=== PATIENT | male | born 1945 | race Asian ===

== ENCOUNTER 2019-06-06 14:33 | Inpatient (IN) | payer MEDICARE ==
[~2019-06-06] VITALS: Ht 160 cm; Wt 73.3 kg
[2019-06-06] MEDS ORDERED: OMEPRAZOLE40 M1 PO (14:52)
[2019-06-06] MEDS ORDERED: SYMBICORT1 AE3 INH (14:53)
[2019-06-06] MEDS ORDERED: SIMVASTATIN40 M1 PO (14:53)
[2019-06-06] MEDS ORDERED: LASIX20 MG PO (15:15)
[2019-06-06 15:30] LABS: CALCIUM 8.5 mg/dL (8.5-10.1); CARBON DIOXIDE 26.3 mmol/L (21-32); CHLORIDE SERUM 102 mmol/L (98-107); CREATININE SERUM 0.9 mg/dL (0.7-1.3); GLUCOSE SERUM 116 mg/dL (74-106); POTASSIUM SERUM 4.1 mmol/L (3.5-5.1); SODIUM SERUM 138 mmol/L (136-145)
[2019-06-06 15:44] LABS: BASOPHIL % 0.2 % (0-2); PLATELET COUNT 283 x10^3mcL (130-400)
[2019-06-06 19:10] LABS: MAGNESIUM 1.7 mg/dL (1.8-2.4)
[2019-06-06 19:11] LABS: CHOLESTEROL/HDL RATIO 4.2
[2019-06-06 19:30] LABS: microscopic required? NO
[2019-06-06 20:02] LABS: UA SPECIFIC GRAVITY <=1.005 (1.005-1.035); urine erythrocyte NEGATIVE (NEGATIVE)
[2019-06-06 20:07] VITALS: BP 95/68
[2019-06-06 20:11] LABS: AMPHETAMINE QUAL UR NONE DETECTED (See below)
[2019-06-06 20:12] VITALS: BP 95/68
[2019-06-06 20:20] VITALS: Ht 160 cm; Wt 73.3 kg
[2019-06-07 05:52] VITALS: BP 96/60
[2019-06-07 06:24] LABS: BASOPHIL % 0.3 % (0-2); PLATELET COUNT 282 x10^3mcL (130-400)
[2019-06-07 06:29] LABS: RED CELL DISTRIBUTION WIDTH 14.9 % (11.5-14.5)
[2019-06-07 08:15] LABS: CARBON DIOXIDE 25.1 mmol/L (21-32); CHLORIDE SERUM 101 mmol/L (98-107); CREATININE SERUM 0.9 mg/dL (0.7-1.3); GLUCOSE SERUM 123 mg/dL (74-106); POTASSIUM SERUM 3.8 mmol/L (3.5-5.1); SODIUM SERUM 137 mmol/L (136-145)
[2019-06-07 08:33] VITALS: BP 97/68
[2019-06-07 13:01] VITALS: BP 93/65
[2019-06-07 16:40] VITALS: BP 96/63
[2019-06-07 20:29] VITALS: BP 103/67
[2019-06-08 06:16] VITALS: BP 94/62
[2019-06-08 06:24] LABS: BASOPHIL % 0.3 % (0-2); PLATELET COUNT 306 x10^3mcL (130-400)
[2019-06-08 07:21] LABS: RED CELL DISTRIBUTION WIDTH 15.1 % (11.5-14.5)
[2019-06-08] MEDS ORDERED: SYNTHROID0.112 MG (08:25)
[2019-06-08] MEDS ORDERED: FLO4 PO (08:27)
[2019-06-08] MEDS ORDERED: SYNTHROID0.112 MG PO (08:29)
[2019-06-08 08:30] LABS: CALCIUM 8.8 mg/dL (8.5-10.1); CARBON DIOXIDE 29.7 mmol/L (21-32); CHLORIDE SERUM 105 mmol/L (98-107); CREATININE SERUM 0.9 mg/dL (0.7-1.3); GLUCOSE SERUM 119 mg/dL (74-106); PHOSPHOROUS 3.7 mg/dL (2.5-4.9); POTASSIUM SERUM 3.8 mmol/L (3.5-5.1); SODIUM SERUM 144 mmol/L (136-145)
[2019-06-08 09:17] VITALS: BP 107/69
[2019-06-08 12:14] VITALS: BP 107/70
[2019-06-08 16:01] VITALS: BP 101/67
[2019-06-08 16:02] VITALS: BP 117/83
[2019-06-08 20:53] VITALS: BP 93/57
[2019-06-09 05:15] VITALS: BP 96/61
[2019-06-09 06:45] LABS: BASOPHIL % 0.3 % (0-2); PLATELET COUNT 307 x10^3mcL (130-400)
[2019-06-09 06:53] LABS: RED CELL DISTRIBUTION WIDTH 14.8 % (11.5-14.5)
[2019-06-09 07:05] LABS: CARBON DIOXIDE 26.1 mmol/L (21-32); CHLORIDE SERUM 102 mmol/L (98-107); CREATININE SERUM 0.8 mg/dL (0.7-1.3); GLUCOSE SERUM 110 mg/dL (74-106); MAGNESIUM 1.6 mg/dL (1.8-2.4); POTASSIUM SERUM 3.4 mmol/L (3.5-5.1); SODIUM SERUM 138 mmol/L (136-145)
[2019-06-09 08:35] VITALS: BP 92/57
[2019-06-09 09:38] VITALS: BP 92/57
[2019-06-09 12:15] VITALS: BP 98/60
[2019-06-09 16:57] VITALS: BP 103/64
[2019-06-09 20:45] VITALS: BP 94/56
[2019-06-10 05:16] VITALS: BP 104/63
[2019-06-10 06:34] LABS: BASOPHIL % 0.1 % (0-2); PLATELET COUNT 330 x10^3mcL (130-400)
[2019-06-10 06:51] LABS: RED CELL DISTRIBUTION WIDTH 15.2 % (11.5-14.5)
[2019-06-10 07:23] LABS: CALCIUM 8.6 mg/dL (8.5-10.1); CARBON DIOXIDE 26.1 mmol/L (21-32); CHLORIDE SERUM 102 mmol/L (98-107); CREATININE SERUM 0.8 mg/dL (0.7-1.3); GLUCOSE SERUM 140 mg/dL (74-106); POTASSIUM SERUM 4.5 mmol/L (3.5-5.1); SODIUM SERUM 138 mmol/L (136-145)
[2019-06-10 08:35] VITALS: BP 99/58
[2019-06-10 12:43] VITALS: BP 103/67
[2019-06-10 17:16] VITALS: BP 102/63
[2019-06-10 19:55] VITALS: BP 103/58
[2019-06-11 05:47] VITALS: BP 104/69
[2019-06-11 06:42] LABS: BASOPHIL % 0.2 % (0-2)
[2019-06-11 06:45] LABS: CALCIUM 8.4 mg/dL (8.5-10.1); CARBON DIOXIDE 25.8 mmol/L (21-32); CHLORIDE SERUM 101 mmol/L (98-107); GLUCOSE SERUM 175 mg/dL (74-106); POTASSIUM SERUM 4.3 mmol/L (3.5-5.1); SODIUM SERUM 138 mmol/L (136-145)
[2019-06-11 07:21] LABS: PLATELET COUNT 405 x10^3mcL (130-400); RED CELL DISTRIBUTION WIDTH 15.4 % (11.5-14.5)
[2019-06-11 08:54] VITALS: BP 102/61
[2019-06-11 11:29] VITALS: BP 106/67
[2019-06-11 16:29] VITALS: BP 104/61
[2019-06-11 19:55] VITALS: BP 96/63
[2019-06-12 05:57] VITALS: BP 92/57
[2019-06-12 06:21] LABS: BASOPHIL % 0.2 % (0-2); PLATELET COUNT 397 x10^3mcL (130-400)
[2019-06-12 06:29] LABS: CALCIUM 8.9 mg/dL (8.5-10.1); CHLORIDE SERUM 102 mmol/L (98-107); CREATININE SERUM 0.9 mg/dL (0.7-1.3); GLUCOSE SERUM 126 mg/dL (74-106); POTASSIUM SERUM 4.9 mmol/L (3.5-5.1); SODIUM SERUM 140 mmol/L (136-145)
[2019-06-12 07:22] LABS: RED CELL DISTRIBUTION WIDTH 15.5 % (11.5-14.5)
[2019-06-12 09:15] VITALS: BP 99/63
[2019-06-12 12:45] VITALS: BP 99/63
[2019-06-12] MEDS ORDERED: LEVAQUIN750 MG PO (17:15)
[2019-06-12] MEDS ORDERED: PRE20 PO (17:17)
[2019-06-12] MEDS ORDERED: ALBUTEROL SULFAT3 ML NEB (17:19)
[2019-06-12 17:37] VITALS: BP 102/54
[2019-06-12 17:47] VITALS: BP 102/54
== END 2019-06-12 20:24 | disposition home health service (06) | DRG 196 ==
LOC: ED 14:33 → DU 18:39 → MU 06-11 16:53
PROVIDERS: Internal Medicine; Student in an Organized Health Care Education/Training Program; ADMIT General Practice
DX: J84.10 Pulmonary fibrosis, unspecified (principal); I21.A1 Myocardial infarction type 2; J96.21 Acute and chronic respiratory failure with hypoxia; E89.0 Postprocedural hypothyroidism; E83.42 Hypomagnesemia; E78.5 Hyperlipidemia, unspecified; N40.0 Benign prostatic hyperplasia without lower urinary tract symptoms; Z99.81 Dependence on supplemental oxygen; Z68.28 Body mass index [BMI] 28.0-28.9, adult; Z87.891 Personal history of nicotine dependence; Z79.51 Long term (current) use of inhaled steroids
CPT/HCPCS: 36600; 82962; 83880; 94150; 97110-GP; 97116-GP; 97530-GP; C9113; G0378; J1644; J1956; J2270; J2920; J3475; J7030; J7512; J7620; Q0092; Q9967

== ENCOUNTER 2019-07-19 03:36 | Inpatient (IN) | payer MEDICARE ==
[~2019-07-19] VITALS: Ht 160 cm; Wt 67.8 kg
[~2019-07-19 03:36] MED LIST: ALBUTEROL SULFAT3 ML NEB; FLO4 PO; LASIX20 MG PO; LEVAQUIN750 MG PO; OMEPRAZOLE40 M1 PO; PRE20 PO; SIMVASTATIN40 M1 PO; SYMBICORT1 AE3 INH; SYNTHROID0.112 MG; SYNTHROID0.112 MG PO
[2019-07-19 03:41] VITALS: Ht 160 cm; Wt 67.8 kg
[2019-07-19 04:05] LABS: BASOPHIL % 0.3 % (0-2); PLATELET COUNT 329 x10^3mcL (130-400)
[2019-07-19 04:08] LABS: RED CELL DISTRIBUTION WIDTH 16.4 % (11.5-14.5)
[2019-07-19 04:15] LABS: CALCIUM 8.8 mg/dL (8.5-10.1); CARBON DIOXIDE 27.7 mmol/L (21-32); CHLORIDE SERUM 101 mmol/L (98-107); CREATININE SERUM 0.9 mg/dL (0.7-1.3); GLUCOSE SERUM 104 mg/dL (74-106); POTASSIUM SERUM 3.9 mmol/L (3.5-5.1); SODIUM SERUM 138 mmol/L (136-145)
[2019-07-19 04:20] LABS: ALBUMIN 3.5 g/dL (3.4-5.0); ALKALINE PHOSPHATASE 69 U/L (46-116); ALT/SGPT 21 U/L (16-63); AST/SGOT 10 U/L (15-37); BILIRUBIN TOTAL 0.36 mg/dL (0.20-1.00); TOTAL PROTEIN, SERUM 7.1 g/dL (6.4-8.2)
[2019-07-19 09:01] VITALS: BP 106/74
[2019-07-19 10:05] LABS: microscopic required? NO
[2019-07-19 10:35] LABS: urine erythrocyte NEGATIVE (NEGATIVE)
[2019-07-19 10:41] LABS: AMPHETAMINE QUAL UR NONE DETECTED (See below)
[2019-07-19 10:57] VITALS: BP 106/74
[2019-07-19 13:13] VITALS: BP 101/71
[2019-07-19 17:39] VITALS: BP 98/61
[2019-07-19 21:28] VITALS: BP 93/55
[2019-07-20 05:23] VITALS: BP 99/62
[2019-07-20 06:52] LABS: BASOPHIL % 0.2 % (0-2); PLATELET COUNT 311 x10^3mcL (130-400)
[2019-07-20 07:06] LABS: RED CELL DISTRIBUTION WIDTH 15.9 % (11.5-14.5)
[2019-07-20 07:22] LABS: CALCIUM 8.6 mg/dL (8.5-10.1); CARBON DIOXIDE 25.3 mmol/L (21-32); CHLORIDE SERUM 104 mmol/L (98-107); CREATININE SERUM 0.7 mg/dL (0.7-1.3); GLUCOSE SERUM 120 mg/dL (74-106); MAGNESIUM 2.3 mg/dL (1.8-2.4); PHOSPHOROUS 3.9 mg/dL (2.5-4.9); SODIUM SERUM 139 mmol/L (136-145)
[2019-07-20 08:50] VITALS: BP 105/58
[2019-07-20 12:24] VITALS: BP 92/56
[2019-07-20 18:09] VITALS: BP 91/53
[2019-07-20 21:53] VITALS: BP 95/60
[2019-07-21 04:28] VITALS: BP 101/65
[2019-07-21 06:31] LABS: BASOPHIL % 0.2 % (0-2); PLATELET COUNT 316 x10^3mcL (130-400)
[2019-07-21 06:52] LABS: RED CELL DISTRIBUTION WIDTH 16.2 % (11.5-14.5)
[2019-07-21 06:54] LABS: CALCIUM 8.5 mg/dL (8.5-10.1); CARBON DIOXIDE 25.1 mmol/L (21-32); CHLORIDE SERUM 104 mmol/L (98-107); CREATININE SERUM 0.9 mg/dL (0.7-1.3); GLUCOSE SERUM 153 mg/dL (74-106); MAGNESIUM 2.1 mg/dL (1.8-2.4); PHOSPHOROUS 3.5 mg/dL (2.5-4.9); POTASSIUM SERUM 3.9 mmol/L (3.5-5.1); SODIUM SERUM 141 mmol/L (136-145)
[2019-07-21 09:25] VITALS: BP 91/60
[2019-07-21 12:41] VITALS: BP 98/70
[2019-07-21 16:10] VITALS: BP 91/63
[2019-07-21 20:47] VITALS: BP 92/64
[2019-07-22 05:43] VITALS: BP 95/66
[2019-07-22 06:30] LABS: BASOPHIL % 0.1 % (0-2); PLATELET COUNT 327 x10^3mcL (130-400)
[2019-07-22 06:37] LABS: RED CELL DISTRIBUTION WIDTH 16.3 % (11.5-14.5)
[2019-07-22 06:55] LABS: CALCIUM 8.4 mg/dL (8.5-10.1); CARBON DIOXIDE 26.9 mmol/L (21-32); CHLORIDE SERUM 103 mmol/L (98-107); CREATININE SERUM 0.7 mg/dL (0.7-1.3); GLUCOSE SERUM 112 mg/dL (74-106); MAGNESIUM 2.3 mg/dL (1.8-2.4); PHOSPHOROUS 3.9 mg/dL (2.5-4.9); POTASSIUM SERUM 3.7 mmol/L (3.5-5.1); SODIUM SERUM 140 mmol/L (136-145)
[2019-07-22] MEDS ORDERED: ATIVAN0.5 M1 PO (08:37)
[2019-07-22] MEDS ORDERED: LEVAQUIN750 MG PO (09:02)
[2019-07-22] MEDS ORDERED: PRE20 PO (09:02)
[2019-07-22 09:14] VITALS: BP 97/65
[2019-07-22 10:37] VITALS: BP 97/65
[2019-07-22 12:52] VITALS: BP 101/69
== END 2019-07-22 16:35 | disposition home health service (06) | DRG 196 ==
LOC: ED 03:36 → DU 04:34
PROVIDERS: Emergency Medicine; ADMIT Internal Medicine
DX: J84.10 Pulmonary fibrosis, unspecified (principal); J96.21 Acute and chronic respiratory failure with hypoxia; J44.1 Chronic obstructive pulmonary disease with (acute) exacerbation; R55 Syncope and collapse; E86.0 Dehydration; I27.29 Other secondary pulmonary hypertension; E03.9 Hypothyroidism, unspecified; N40.0 Benign prostatic hyperplasia without lower urinary tract symptoms; Z99.81 Dependence on supplemental oxygen; Z87.891 Personal history of nicotine dependence; Z68.27 Body mass index [BMI] 27.0-27.9, adult
CPT/HCPCS: 36600; 90658; 90732; 94150; 97110-GP; 97116-GP; G0378; J1956; J2920; J2930; J7030; J7613; J7620; J7626; J7644; Q0092

== ENCOUNTER 2019-09-16 01:17 | Inpatient (IN) | payer MEDICARE ==
[2019-09-16] VITALS (20 sets, daily range): BP systolic 82–146; BP diastolic 55–94
[~2019-09-16] VITALS: Ht 167.6 cm; Wt 67.0 kg
[~2019-09-16 01:17] MED LIST changes: +ATIVAN0.5 M1 PO
[2019-09-16 02:13] LABS: CALCIUM 7.9 mg/dL (8.5-10.1); CARBON DIOXIDE 28.6 mmol/L (21-32); CHLORIDE SERUM 100 mmol/L (98-107); CREATININE SERUM 0.8 mg/dL (0.7-1.3); GLUCOSE SERUM 116 mg/dL (74-106); POTASSIUM SERUM 3.8 mmol/L (3.5-5.1); SODIUM SERUM 140 mmol/L (136-145)
[2019-09-16 02:17] LABS: ALKALINE PHOSPHATASE 90 U/L (46-116); ALT/SGPT 56 U/L (16-63); AST/SGOT 38 U/L (15-37); BILIRUBIN TOTAL 0.58 mg/dL (0.20-1.00); LIPASE 116 IU/L (73-393); TOTAL PROTEIN, SERUM 7.5 g/dL (6.4-8.2)
[2019-09-16 02:20] LABS: PLATELET COUNT 454 x10^3mcL (130-400); RED CELL DISTRIBUTION WIDTH 15.2 % (11.5-14.5)
[2019-09-16 02:22] LABS: ALBUMIN 3.1 g/dL (3.4-5.0)
[2019-09-16 02:24] LABS: T3 TOTAL 0.58 ng/mL
[2019-09-16 02:33] LABS: FREE T4 1.01 ng/dL (0.76-1.46); FREE THYROXINE INDEX 2.8 ug/dL (1.4-4.5); T4(THYROXINE) 7.9 ug/dL (4.7-13.3)
[2019-09-16 02:34] LABS: BAND NEUTROPHIL 4 % (0-10); METAMYELOCTE 1 % (0-2); MONOCYTE 4 % (0-7); SEGMENTED NEUTROPHILS 82 % (37-75)
[2019-09-16 02:38] LABS: PLATELET MORPHOLOGY PLATELETS NORMAL; rbc morphology (normal/abnorm) ABNORMAL (NORMAL)
[2019-09-16 04:08] LABS: UA SPECIFIC GRAVITY 1.015 (1.005-1.035); microscopic required? YES; urine erythrocyte 1+ (NEGATIVE)
[2019-09-16 04:13] LABS: CHOLESTEROL/HDL RATIO 3.2
[2019-09-16 04:16] LABS: AMPHETAMINE QUAL UR NONE DETECTED (See below)
[2019-09-16 08:00] LABS: PLATELET COUNT 283 x10^3mcL (130-400)
[2019-09-16 08:17] LABS: CALCIUM 6.7 mg/dL (8.5-10.1); CARBON DIOXIDE 25.6 mmol/L (21-32); CHLORIDE SERUM 104 mmol/L (98-107); CREATININE SERUM 0.8 mg/dL (0.7-1.3); GLUCOSE SERUM 155 mg/dL (74-106); MAGNESIUM 1.9 mg/dL (1.8-2.4); PHOSPHOROUS 3.2 mg/dL (2.5-4.9); POTASSIUM SERUM 3.9 mmol/L (3.5-5.1); SODIUM SERUM 137 mmol/L (136-145)
[2019-09-16 09:11] LABS: RED CELL DISTRIBUTION WIDTH 16.9 % (11.5-14.5)
[2019-09-16 11:35] LABS: BAND NEUTROPHIL 4 % (0-10); BASOPHIL 0 % (0-2); MONOCYTE 2 % (0-7); SEGMENTED NEUTROPHILS 94 % (37-75)
[2019-09-16 11:36] LABS: PLATELET MORPHOLOGY PLATELETS NORMAL; rbc morphology (normal/abnorm) ABNORMAL (NORMAL)
[2019-09-17] VITALS (18 sets, daily range): BP systolic 87–117; BP diastolic 54–70
[2019-09-17 05:34] LABS: PLATELET COUNT 281 x10^3mcL (130-400)
[2019-09-17 05:36] LABS: BASOPHIL % 0 % (0-2); RED CELL DISTRIBUTION WIDTH 16.8 % (11.5-14.5)
[2019-09-17 05:45] LABS: CALCIUM 6.8 mg/dL (8.5-10.1); CARBON DIOXIDE 27.8 mmol/L (21-32); CHLORIDE SERUM 107 mmol/L (98-107); CREATININE SERUM 0.6 mg/dL (0.7-1.3); GLUCOSE SERUM 179 mg/dL (74-106); MAGNESIUM 2.2 mg/dL (1.8-2.4); PHOSPHOROUS 2.8 mg/dL (2.5-4.9); POTASSIUM SERUM 3.6 mmol/L (3.5-5.1); SODIUM SERUM 143 mmol/L (136-145)
[2019-09-18] VITALS (17 sets, daily range): BP systolic 86–117; BP diastolic 57–79
[2019-09-18 05:06] LABS: PLATELET COUNT 295 x10^3mcL (130-400)
[2019-09-18 05:11] LABS: BASOPHIL % 0 % (0-2); RED CELL DISTRIBUTION WIDTH 17.2 % (11.5-14.5)
[2019-09-18 05:16] LABS: CALCIUM 6.9 mg/dL (8.5-10.1); CARBON DIOXIDE 31.7 mmol/L (21-32); CHLORIDE SERUM 109 mmol/L (98-107); CREATININE SERUM 0.5 mg/dL (0.7-1.3); GLUCOSE SERUM 163 mg/dL (74-106); MAGNESIUM 2.5 mg/dL (1.8-2.4); PHOSPHOROUS 2.6 mg/dL (2.5-4.9); POTASSIUM SERUM 3.8 mmol/L (3.5-5.1); SODIUM SERUM 144 mmol/L (136-145)
[2019-09-19] VITALS (18 sets, daily range): BP systolic 90–116; BP diastolic 58–79
[2019-09-19 05:16] LABS: BASOPHIL % 0 % (0-2); PLATELET COUNT 267 x10^3mcL (130-400); RED CELL DISTRIBUTION WIDTH 16.8 % (11.5-14.5)
[2019-09-19 05:20] LABS: CALCIUM 7.1 mg/dL (8.5-10.1); CARBON DIOXIDE 30.6 mmol/L (21-32); CHLORIDE SERUM 106 mmol/L (98-107); CREATININE SERUM 0.5 mg/dL (0.7-1.3); GLUCOSE SERUM 163 mg/dL (74-106); MAGNESIUM 2.7 mg/dL (1.8-2.4); PHOSPHOROUS 2.4 mg/dL (2.5-4.9); POTASSIUM SERUM 4.3 mmol/L (3.5-5.1); SODIUM SERUM 139 mmol/L (136-145)
[2019-09-20] VITALS (17 sets, daily range): BP systolic 97–135; BP diastolic 58–90
[2019-09-20 05:41] LABS: PLATELET COUNT 236 x10^3mcL (130-400)
[2019-09-20 05:42] LABS: BASOPHIL % 0 % (0-2); RED CELL DISTRIBUTION WIDTH 16.3 % (11.5-14.5)
[2019-09-20 05:46] LABS: CALCIUM 7.2 mg/dL (8.5-10.1); CARBON DIOXIDE 32.2 mmol/L (21-32); CHLORIDE SERUM 105 mmol/L (98-107); CREATININE SERUM 0.6 mg/dL (0.7-1.3); GLUCOSE SERUM 155 mg/dL (74-106); MAGNESIUM 2.6 mg/dL (1.8-2.4); PHOSPHOROUS 2.4 mg/dL (2.5-4.9); POTASSIUM SERUM 4.2 mmol/L (3.5-5.1); SODIUM SERUM 142 mmol/L (136-145)
[2019-09-21] VITALS (17 sets, daily range): BP systolic 101–136; BP diastolic 71–97
[2019-09-21 05:34] LABS: BASOPHIL % 0.1 % (0-2); PLATELET COUNT 252 x10^3mcL (130-400)
[2019-09-21 06:18] LABS: CALCIUM 8.1 mg/dL (8.5-10.1); CARBON DIOXIDE 33.9 mmol/L (21-32); CHLORIDE SERUM 100 mmol/L (98-107); CREATININE SERUM 0.3 mg/dL (0.7-1.3); GLUCOSE SERUM 137 mg/dL (74-106); MAGNESIUM 2.3 mg/dL (1.8-2.4); POTASSIUM SERUM 4.2 mmol/L (3.5-5.1); SODIUM SERUM 139 mmol/L (136-145)
[2019-09-22] VITALS (15 sets, daily range): BP systolic 82–130; BP diastolic 55–87
[2019-09-22 05:56] LABS: PLATELET COUNT 257 x10^3mcL (130-400)
[2019-09-22 05:58] LABS: BASOPHIL % 0 % (0-2); RED CELL DISTRIBUTION WIDTH 16.7 % (11.5-14.5)
[2019-09-22 06:23] LABS: CALCIUM 8.7 mg/dL (8.5-10.1); CHLORIDE SERUM 100 mmol/L (98-107); CREATININE SERUM 0.5 mg/dL (0.7-1.3); GLUCOSE SERUM 162 mg/dL (74-106); MAGNESIUM 2.3 mg/dL (1.8-2.4); PHOSPHOROUS 4.3 mg/dL (2.5-4.9); POTASSIUM SERUM 4.2 mmol/L (3.5-5.1); SODIUM SERUM 141 mmol/L (136-145)
[2019-09-23] VITALS (19 sets, daily range): BP systolic 80–121; BP diastolic 53–82
[2019-09-23 06:19] LABS: CALCIUM 8.4 mg/dL (8.5-10.1); CHLORIDE SERUM 96 mmol/L (98-107); CREATININE SERUM 0.5 mg/dL (0.7-1.3); GLUCOSE SERUM 144 mg/dL (74-106); MAGNESIUM 2.2 mg/dL (1.8-2.4); PHOSPHOROUS 4.1 mg/dL (2.5-4.9); POTASSIUM SERUM 4.1 mmol/L (3.5-5.1); SODIUM SERUM 139 mmol/L (136-145)
[2019-09-23 06:20] LABS: CARBON DIOXIDE 42.3 mmol/L (21-32)
[2019-09-23 06:43] LABS: PLATELET COUNT 252 x10^3mcL (130-400)
[2019-09-23 06:50] LABS: BASOPHIL % 0 % (0-2); RED CELL DISTRIBUTION WIDTH 16.3 % (11.5-14.5)
[2019-09-24] VITALS (15 sets, daily range): BP systolic 89–125; BP diastolic 63–87
[2019-09-24 06:16] LABS: CALCIUM 8.9 mg/dL (8.5-10.1); CARBON DIOXIDE 39.7 mmol/L (21-32); CHLORIDE SERUM 94 mmol/L (98-107); CREATININE SERUM 0.5 mg/dL (0.7-1.3); GLUCOSE SERUM 146 mg/dL (74-106); MAGNESIUM 2.1 mg/dL (1.8-2.4); PHOSPHOROUS 3.5 mg/dL (2.5-4.9); POTASSIUM SERUM 3.8 mmol/L (3.5-5.1); SODIUM SERUM 137 mmol/L (136-145)
[2019-09-24 06:19] LABS: BASOPHIL % 0.1 % (0-2); PLATELET COUNT 289 x10^3mcL (130-400)
[2019-09-24 07:18] LABS: RED CELL DISTRIBUTION WIDTH 16.2 % (11.5-14.5)
[2019-09-25] VITALS (15 sets, daily range): BP systolic 81–118; BP diastolic 52–80
[2019-09-25 05:12] LABS: BASOPHIL % 0.5 % (0-2); PLATELET COUNT 310 x10^3mcL (130-400)
[2019-09-25 05:16] LABS: RED CELL DISTRIBUTION WIDTH 15.8 % (11.5-14.5)
[2019-09-25 05:20] LABS: CALCIUM 8.8 mg/dL (8.5-10.1); CARBON DIOXIDE 38.1 mmol/L (21-32); CHLORIDE SERUM 94 mmol/L (98-107); CREATININE SERUM 0.6 mg/dL (0.7-1.3); GLUCOSE SERUM 135 mg/dL (74-106); POTASSIUM SERUM 4.6 mmol/L (3.5-5.1); SODIUM SERUM 136 mmol/L (136-145)
[2019-09-25 09:59] LABS: microscopic required? YES; urine erythrocyte 2+ (NEGATIVE)
[2019-09-26] VITALS (18 sets, daily range): BP systolic 80–126; BP diastolic 53–83
[2019-09-26 05:07] LABS: PLATELET COUNT 296 x10^3mcL (130-400)
[2019-09-26 05:20] LABS: BASOPHIL % 0 % (0-2); RED CELL DISTRIBUTION WIDTH 16.4 % (11.5-14.5)
[2019-09-26 05:32] LABS: CARBON DIOXIDE 39.7 mmol/L (21-32); CHLORIDE SERUM 96 mmol/L (98-107); CREATININE SERUM 0.6 mg/dL (0.7-1.3); GLUCOSE SERUM 121 mg/dL (74-106); MAGNESIUM 2.4 mg/dL (1.8-2.4); PHOSPHOROUS 3.9 mg/dL (2.5-4.9); POTASSIUM SERUM 4.1 mmol/L (3.5-5.1); SODIUM SERUM 135 mmol/L (136-145)
[2019-09-27] VITALS (19 sets, daily range): BP systolic 72–137; BP diastolic 43–97
[2019-09-27 06:02] LABS: PLATELET COUNT 300 x10^3mcL (130-400)
[2019-09-27 06:07] LABS: RED CELL DISTRIBUTION WIDTH 16.4 % (11.5-14.5)
[2019-09-27 06:13] LABS: CARBON DIOXIDE 32 mmol/L (21-32); CHLORIDE SERUM 98 mmol/L (98-107); CREATININE SERUM 0.6 mg/dL (0.7-1.3); GLUCOSE SERUM 146 mg/dL (74-106); PHOSPHOROUS 2.8 mg/dL (2.5-4.9); POTASSIUM SERUM 3.8 mmol/L (3.5-5.1); SODIUM SERUM 134 mmol/L (136-145)
[2019-09-27 08:24] LABS: MONOCYTE 2 % (0-7); SEGMENTED NEUTROPHILS 91 % (37-75)
[2019-09-27 08:56] LABS: rbc morphology (normal/abnorm) NORMAL (NORMAL)
[2019-09-28] VITALS (14 sets, daily range): BP systolic 80–109; BP diastolic 41–75
[2019-09-28 06:17] LABS: PLATELET COUNT 294 x10^3mcL (130-400)
[2019-09-28 06:18] LABS: BASOPHIL % 0 % (0-2); RED CELL DISTRIBUTION WIDTH 16.8 % (11.5-14.5)
[2019-09-28 06:57] LABS: CARBON DIOXIDE 36.7 mmol/L (21-32); CHLORIDE SERUM 101 mmol/L (98-107); POTASSIUM SERUM 4.1 mmol/L (3.5-5.1); SODIUM SERUM 138 mmol/L (136-145)
[2019-09-28 06:58] LABS: CALCIUM 8.3 mg/dL (8.5-10.1); CREATININE SERUM 0.5 mg/dL (0.7-1.3); GLUCOSE SERUM 164 mg/dL (74-106); MAGNESIUM 2.2 mg/dL (1.8-2.4); PHOSPHOROUS 2.1 mg/dL (2.5-4.9)
[2019-09-29 03:19] VITALS: BP 91/55
[2019-09-29 05:01] LABS: BASOPHIL % 0.3 % (0-2); PLATELET COUNT 299 x10^3mcL (130-400)
[2019-09-29 05:32] LABS: CALCIUM 8.9 mg/dL (8.5-10.1); CHLORIDE SERUM 98 mmol/L (98-107); CREATININE SERUM 0.5 mg/dL (0.7-1.3); GLUCOSE SERUM 113 mg/dL (74-106); MAGNESIUM 2.2 mg/dL (1.8-2.4); PHOSPHOROUS 2.1 mg/dL (2.5-4.9); POTASSIUM SERUM 3.9 mmol/L (3.5-5.1); SODIUM SERUM 136 mmol/L (136-145)
[2019-09-29 07:26] VITALS: BP 99/63
[2019-09-29 08:03] VITALS: Ht 167.6 cm; Wt 67.0 kg
[2019-09-29 11:49] VITALS: BP 102/67
[2019-09-29 16:07] VITALS: BP 90/63
[2019-09-29 21:08] VITALS: BP 87/49
[2019-09-29 22:30] VITALS: BP 96/68
[2019-09-30 05:45] VITALS: BP 87/62
[2019-09-30 06:49] LABS: BASOPHIL % 0.3 % (0-2); PLATELET COUNT 362 x10^3mcL (130-400)
[2019-09-30 07:00] LABS: RED CELL DISTRIBUTION WIDTH 16.6 % (11.5-14.5)
[2019-09-30 08:29] VITALS: BP 80/53
[2019-09-30 09:14] LABS: CALCIUM 8.4 mg/dL (8.5-10.1); CARBON DIOXIDE 27.8 mmol/L (21-32); CHLORIDE SERUM 99 mmol/L (98-107); CREATININE SERUM 0.5 mg/dL (0.7-1.3); GLUCOSE SERUM 121 mg/dL (74-106); PHOSPHOROUS 2.7 mg/dL (2.5-4.9); POTASSIUM SERUM 3.6 mmol/L (3.5-5.1); SODIUM SERUM 135 mmol/L (136-145)
[2019-09-30 09:15] LABS: MAGNESIUM 2.1 mg/dL (1.8-2.4)
[2019-09-30 10:50] VITALS: BP 97/66
[2019-09-30 12:37] VITALS: BP 100/73
[2019-09-30 17:33] VITALS: BP 98/73
[2019-09-30 22:10] VITALS: BP 93/66
[2019-10-01 06:09] VITALS: BP 93/63
[2019-10-01 07:06] LABS: BASOPHIL % 0.3 % (0-2); PLATELET COUNT 383 x10^3mcL (130-400)
[2019-10-01 07:18] LABS: CARBON DIOXIDE 24.9 mmol/L (21-32); CHLORIDE SERUM 98 mmol/L (98-107); POTASSIUM SERUM 3.8 mmol/L (3.5-5.1); SODIUM SERUM 133 mmol/L (136-145)
[2019-10-01 07:19] LABS: CALCIUM 8.6 mg/dL (8.5-10.1); CREATININE SERUM 0.6 mg/dL (0.7-1.3); GLUCOSE SERUM 128 mg/dL (74-106); PHOSPHOROUS 3.1 mg/dL (2.5-4.9); RED CELL DISTRIBUTION WIDTH 16.7 % (11.5-14.5)
[2019-10-01 07:20] LABS: MAGNESIUM 1.9 mg/dL (1.8-2.4)
[2019-10-01 09:09] VITALS: BP 97/68
[2019-10-01 12:25] VITALS: BP 103/80
[2019-10-01 16:35] VITALS: BP 90/57
[2019-10-01 20:21] VITALS: BP 90/58
[2019-10-02 05:33] VITALS: BP 98/73
[2019-10-02 06:49] LABS: BASOPHIL % 0.3 % (0-2); PLATELET COUNT 355 x10^3mcL (130-400)
[2019-10-02 07:02] LABS: RED CELL DISTRIBUTION WIDTH 16.9 % (11.5-14.5)
[2019-10-02 07:04] LABS: SODIUM SERUM 132 mmol/L (136-145)
[2019-10-02 07:05] LABS: CALCIUM 8.9 mg/dL (8.5-10.1); CARBON DIOXIDE 23.9 mmol/L (21-32); CHLORIDE SERUM 97 mmol/L (98-107); CREATININE SERUM 0.7 mg/dL (0.7-1.3); GLUCOSE SERUM 136 mg/dL (74-106); MAGNESIUM 2.1 mg/dL (1.8-2.4)
[2019-10-02 09:19] VITALS: BP 93/57
[2019-10-02 13:48] VITALS: BP 95/68
[2019-10-02 13:57] LABS: microscopic required? YES; urine erythrocyte NEGATIVE (NEGATIVE)
[2019-10-02] MEDS ORDERED: PRE20 PO (15:58)
[2019-10-02] MEDS ORDERED: PROA PO (15:59)
[2019-10-02] MEDS ORDERED: RES15 PO (15:59)
[2019-10-02] MEDS ORDERED: LAC NG (16:00)
[2019-10-02] MEDS ORDERED: BACTRIM1 TAB PO (16:01)
[2019-10-02] MEDS ORDERED: PROS5 PO (16:01)
[2019-10-02 17:55] VITALS: BP 89/52
[2019-10-02 20:01] VITALS: BP 88/61
[2019-10-02 20:53] VITALS: BP 88/61
== END 2019-10-02 21:19 | disposition home or self-care (01) | DRG 870 ==
LOC: ED 01:17 → IC 03:02 → EDBEDREQ 03:03 → IC 04:35 → DU 09-29 15:36
PROVIDERS: Emergency Medicine; Family Medicine; ADMIT Internal Medicine
PROC: 5A1955Z Respiratory Ventilation, Greater than 96 Consecutive Hours (ICD-10-PCS; principal; 2019-09-16)
PROC: 0BH17EZ Insertion of Endotracheal Airway into Trachea, Via Natural or Artificial Opening (ICD-10-PCS; 2019-09-16)
DX: A41.9 Sepsis, unspecified organism (principal); J96.01 Acute respiratory failure with hypoxia; J96.02 Acute respiratory failure with hypercapnia; J18.9 Pneumonia, unspecified organism; R65.21 Severe sepsis with septic shock; E44.1 Mild protein-calorie malnutrition; J84.10 Pulmonary fibrosis, unspecified; N40.0 Benign prostatic hyperplasia without lower urinary tract symptoms; E78.5 Hyperlipidemia, unspecified; E78.00 Pure hypercholesterolemia, unspecified; E89.0 Postprocedural hypothyroidism; Z99.81 Dependence on supplemental oxygen; Z68.28 Body mass index [BMI] 28.0-28.9, adult; Z79.51 Long term (current) use of inhaled steroids
CPT/HCPCS: 36600; 83880; 84439; 85378; 87046; 87046-59; 87107; 87804; 94150; 97110-GP; 97116-GP; 97530-GP; A4628; C9113; G0378; J0330; J0456; J0692; J1644; J1885; J1940; J1956; J2060; J2185; J2250; J2270; J2704; J2920; J2930; J3010; J3370; J3490; J7030; J7040; J7050; J7620; J7626; Q0092